=== PATIENT | female | born 1975 | race Caucasian/White ===

== ENCOUNTER 2023-04-25 09:54 | Day surgery (SDC) | payer BC ==
--- NOTE | 2023-04-25 08:30 | HP ---
DATE OF SURGERY: 04/25/2023 HISTORY OF PRESENT ILLNESS: The patient had last colonoscopy five years ago. No change in bowel movements. She had some blood in the underwear at times. No new pain. PAST MEDICAL HISTORY: Arthritis, anxiety, sleep apnea, history of ovarian cysts. PAST SURGICAL HISTORY: Cholecystectomy. Knee surgery. LEEP. MEDICATIONS: Citalopram, Tremfya, folic acid, simvastatin. ALLERGIES: CIPROFLOXACIN. FAMILY HISTORY: Hyperlipidemia. Diabetes. Negative for colon cancer. Mother had history of colon polyps. SOCIAL HISTORY: Former smoking. No alcohol abuse. REVIEW OF SYSTEMS: Fourteen systems reviewed. No chest pain or palpitations. Other systems negative or noncontributory as above and per preadmission questionnaire. PHYSICAL EXAMINATION: GENERAL: No acute distress. HEENT: Sclerae nonicteric. EOMI. Oral mucous membranes moist. NECK: No JVD. CHEST: Equal excursion, nonlabored breathing. CVS: Regular rate and rhythm. ABDOMEN: Soft. No peritoneal signs. EXTREMITIES: No edema. NEURO: Alert, oriented, moving extremities symmetrically. RECTAL: Deferred timed to endoscopy exam. PSYCH: Appropriate mood and affect. SKIN: Dry. IMPRESSION: Small amount of rectal bleeding. The patient is in need of colonoscopy. She has family history of polyps. Risks and benefits explained in detail including but not limited to bleeding or infection, risk of bowel injury or perforation, risk of missed or nondiagnosis or incomplete exam possibly requiring barium enema, other studies or procedures, general risk of anesthesia or sedation, risk of bowel prep but not limited to. Consent obtained. Will proceed with outpatient colonoscopy for rectal bleeding. The patient is to continue medication for anxiety. Will proceed for colonoscopy as an outpatient.
[2023-04-25 10:34] VITALS: RESP 16
[2023-04-25] MEDS ORDERED: Lactated Ringers 1,000 ML IV SCH (11:00)
[2023-04-25] MEDS ORDERED: Versed 2 MG/2 ML Injection ONE (11:39)
[2023-04-25] MEDS ORDERED: DIPRIVAN 200 MG/20 ML IV ONE ×2 (11:39→12:03)
[2023-04-25] MEDS ORDERED: Xylocaine-Mpf 2% 5 Ml Vial ONE (11:39)
[2023-04-25 13:09] VITALS: O2SAT 99
[2023-04-25 13:16] VITALS: BP 119/80; PULSE 61; TEMP 96.9
--- NOTE | 2023-04-25 14:36 | OP ---
SURGERY DATE/TIME: 04/25/2023 1146 PREOPERATIVE DIAGNOSIS: Need for screening colonoscopy. POSTOPERATIVE DIAGNOSES: 1) Moderately large sigmoid colon polyp. 2) Smaller polyps transverse colon, additional 2 sigmoid polyps. 3) Small rectal polyp. 4) Diverticulosis left colon. PROCEDURES: 1) Colonoscopy to cecum. 2) Hot snare polypectomy, moderately large sigmoid colon polyp with ink spot tattooing location. 3) Hot biopsy polypectomy small polyp transverse colon, additional sigmoid colon polyps x2 and rectal polyp x1. 4) ASA Class II. SURGEON: Dr. Zelalem Carrasco. ANESTHESIA: MAC. ESTIMATED BLOOD LOSS: Minimal. INDICATIONS: As noted above. Risks and benefits explained in detail but not limited to and consent obtained. DESCRIPTION OF PROCEDURE AND FINDINGS: The patient is taken to the endoscopy room. MAC anesthesia induced. After official time out and no disagreement with planned procedure, digital rectal exam did not reveal any rectal masses. Video colonoscope inserted and passed up through the tortuous sigmoid, descending, transverse and ascending colon around to the cecum. Appendiceal orifice and valve well visualized. Prep overall a little bit of liquidy stool throughout the colon just slightly limiting the exam for small lesions but overall good prep. The scope was carefully withdrawn over the next 8 or 9 minutes. She had some diverticulosis in left colon. There was a small polyp in the transverse colon removed with hot biopsy polypectomy. There were two additional small polyps in the sigmoid colon removed with hot biopsy polypectomy. There was a large approximately 1 cm or so polyp on a stalk pedunculated, this was removed hot snare polypectomy with brief bursts of cautery and appeared to be removed intact. Given the appearance of the polyp, the size and contour, it was felt it warranted ink spot tattooing in this location. Submucosa ink spot tattooed 1 cc in one location and 0.5 cc in another location. The base appeared to be viable. It was marked. She did have some diverticulosis in the left colon. The scope pulled back to the rectum. Small polyp was removed with hot biopsy polypectomy. Good hemostasis was noted. The scope is withdrawn. The patient tolerated the procedure well. Findings discussed with her family out in the waiting area.
== END 2023-04-25 13:24 | disposition home or self-care (01) ==
LOC: SDC 09:54
PROVIDERS: ATTEND Surgery
DX: Z12.11 Encounter for screening for malignant neoplasm of colon (principal); K62.1 Rectal polyp; K57.30 Diverticulosis of large intestine without perforation or abscess without bleeding; D12.5 Benign neoplasm of sigmoid colon
CPT/HCPCS: J2250; J2704

== ENCOUNTER 2023-04-26 16:25 | Emergency (ER) | payer BC ==
[2023-04-26 16:54] VITALS: RESP 20; TEMP 96.7
[2023-04-26] MEDS ORDERED: TORAdol 30 mg Injection ONE (17:55)
[2023-04-26] MEDS ORDERED: Sodium Chloride 0.9% 1000 ML 1,000 ML ONE (17:55)
[2023-04-26] MEDS: Sodium Chloride 0.9% 1000 ML 1,000 ML IV STA (17:56)
[2023-04-26] MEDS: TORAdol 30 mg Injection IV ONE (17:56)
[2023-04-26 18:14] LABS: Absolute Neutrophil Ct (ANC) 1.74 x10^3/uL (1.4-6.9); BASOPHIL % 0.8 % (0.0-0.4); Basophil (Absolute #) 0.03 x10^3/uL (0-0.4); Eosinophil % 6.4 % (0.00-5.0); Eosinophil (Absolute #) 0.24 x10^3/uL (0-0.5); Hematocrit 37.8 % (35-47); Hemoglobin 12.4 g/dL (12.0-16.0); IMMATURE GRAN # 0.01 x10^3u/L (0.00-0.03); IMMATURE GRAN % 0.3 % (0.00-0.4); Lymphocyte (Absolute #) 1.28 x10^3/uL (1.0-4.6); Lymphocytes % 34.2 % (24.0-44.0); Mean Cell Volume 90.2 fL (78-100); Mean Corpuscular Hemoglobin 29.6 pg (26-32); Mean Corpuscular Hgb Concent. 32.8 g/dL (32-36); Mean Platelet Volume 9.9 fL (7.5-11.0); Monocyte (Absolute #) 0.44 x10^3/uL (0.0-1.3); Monocytes % 11.8 % (0.0-12.0); Neutrophil % 46.5 % (36.0-66.0); Platelet Count 205 x10^3/uL (150-450); Red Blood Count 4.19 x10^6/uL (4.1-5.4); Red Cell Distribution Width 12.4 % (11.5-14.0); White Blood Count 3.7 x10^3/uL (4.0-10.5)
[2023-04-26 18:29] LABS: ALBUMIN 3.8 g/dL (3.5-5.0); ALKALINE PHOSPHATASE 72 U/L (38-126); ANION GAP 9.4 MEQ/L (5-15); BLOOD UREA NITROGEN 9 mg/dL (7-17); CHLORIDE 106 mmol/L (98-107); Calcium 8.5 mg/dL (8.4-10.2); Carbon Dioxide 27 mmol/L (22-30); Creatinine 1 0.59 mg/dL (0.52-1.04); EST GLOMERULAR FILTRATION RATE > 60.0 ML/MIN; Glucose 96 mg/dL (74-106); LIPASE 104 U/L (23-300); Potassium 3.6 mmol/L (3.5-5.1); SGOT/AST 34 U/L (14-36); SGPT/ALT 28 U/L (0-35); SODIUM 139 mmol/L (137-145); Total Protein 6.7 g/dL (6.3-8.2)
[2023-04-26 19:20] LABS: Appearance Clear (Clear); Bacteria None Seen /HPF (None Seen); Bilirubin Negative (Negative); Blood Negative (Negative); Epithelial Cells None Seen /HPF (None Seen); Glucose, Urine Negative (Negative); Hyaline Casts NONE SEEN /LPF (0-2); Ketones Negative (Negative); Leukocyte Esterase Negative (Negative); Nitrite Negative (Negative); Ph 7.5 (4.6-8.0); Protein,Urine Dip Negative (Negative); RBC 0-2 /HPF (0-5); Urobilinogen 0.2 mg/dL (0.2); WBC 0-2 /HPF (0-5)
[2023-04-26 19:23] LABS: ADD URINE CULTURE? NO (NO)
[2023-04-26] MEDS ORDERED: MORPHINE SULFATE 4 MG INJ ONE (20:30)
[2023-04-26] MEDS: MORPHINE SULFATE 4 MG INJ IV ONE (20:31)
--- NOTE | 2023-04-26 20:34 | ERPHSYRPT ---
- History of Present Illness Time Seen by Provider: 04/26/23 16:45 Historian: patient Exam Limitations: no limitations Patient Subjective Stated Complaint: pt states yesterday she had colonoscopy done yesterday. pt states that she had multiple polyps removed with being the size of a bar of soap Triage Nursing Assessment: pt ambulated into the er; pt is axo x4; c/o yahir lower abd pain; pt denies N/V/D; active bowel sounds in all quads; c/o yahir flank pain; no respiratory distress present; skin PDW; vitals wnl Physician History: Patient is a 47-year-old female presents to emergency department for evaluation of abdominal pain post colonoscopy and polyp resection. Patient called her surgeon's office who advised her to come here for a CAT scan to rule out perforation. Patient's pain is mostly in the left lower quadrant. No trauma. No fever. Patient states she did not receive a prescription for pain medication. No associated vomiting no diarrhea. No rash. No fever. Symptoms are moderate in intensity. Palpation reproduces pain. Patient's son at bedside. They voiced no other complaints or concerns at this time. Portions of this note were created with voice recognition technology. There may be grammatical, spelling, punctuation or sound alike errors Timing/Duration: today Activities at Onset: none Quality: aching Abdominal Pain Onset Location: LLQ Pain Radiation: no radiation Severity of Pain-Max: moderate Severity of Pain-Current: mild Modifying Factors: Improves With: palpation Associated Symptoms: denies symptoms Previous symptoms: no prior history Allergies/Adverse Reactions: ciprofloxacin [From Cipro] Allergy (Unknown, Verified 04/26/23 16:34) Home Medications: Citalopram Hydrobromide [Celexa] 1 tab PO DAILY 03/31/23 [History] Folic Acid 1 mg [Folate 1 mg] 1 mg PO DAILY 03/31/23 [History] Guselkumab [Tremfya] 1 syringe SQ UD 03/31/23 [History] Simvastatin 20Mg [Zocor 20Mg] 40 mg PO DAILY 03/31/23 [History] Leflunomide [Arava] 10 mg PO 10 04/26/23 [History] Hx Tetanus, Diphtheria Vaccination/Date Given: No Hx Influenza Vaccination/Date Given: Yes Hx Pneumococcal Vaccination/Date Given: No Travel Risk - International Travel Have you traveled outside of the country in past 3 weeks: No - Coronavirus Screening Are you exhibiting any of the following symptoms?: No Close contact with a COVID-19 positive Pt in past 14-21 Days: No - Vaccine Status Have you recieved a Covid-19 vaccination: Yes [employer]: Moderna - Vaccination Dates Date of 2cond Vaccination (if applicable): 2020 - Review of Systems Constitutional: No Symptoms, No Fever, No Chills Eyes: No Symptoms Ears, Nose, & Throat: No Symptoms Respiratory: No Symptoms, No Cough, No Dyspnea Cardiac: No Symptoms, No Chest Pain, No Edema, No Syncope Abdominal/Gastrointestinal: No Symptoms, No Abdominal Pain, No Nausea, No Vo miting, No Diarrhea Genitourinary Symptoms: No Symptoms, No Dysuria Musculoskeletal: No Symptoms, No Back Pain, No Neck Pain Skin: No Symptoms, No Rash Neurological: No Symptoms, No Dizziness, No Focal Weakness, No Sensory Changes Psychological: No Symptoms Endocrine: No Symptoms Hematologic/Lymphatic: No Symptoms Immunological/Allergic: No Symptoms All Other Systems: Reviewed and Negative - Past Medical History Pertinent Past Medical History: Yes Neurological History: No Pertinent History ENT History: No Pertinent History Cardiac History: No Pertinent History Respiratory History: No Pertinent History Endocrine Medical History: No Pertinent History Musculoskeletal History: Arthritis GI Medical History: Gallbladder Disease History: No Pertinent History Psycho-Social History: No Pertinent History Female Reproductive Disorders: No Pertinent History Other Medical History: psoriatic arthritis - Past Surgical History Past Surgical History: Yes Neuro Surgical History: No Pertinent History Cardiac: No Pertinent History Respiratory: No Pertinent History Gastrointestinal: Cholecystectomy Genitourinary: No Pertinent History Musculoskeletal: No Pertinent History Female Surgical History: No Pertinent History Other Surgical History: leep, cone, knee, Essure implant.; colonscopy - Social History Smoking Status: Former smoker Exposure to second hand smoke: No Drug Use: none Patient Lives Alone: No - Female History Hx Now: No - Nursing Vital Signs Nursing Vital Signs: Initial Vital Signs Temperature 96.7 F 04/26/23 16:38 Pulse Rate 77 04/26/23 16:38 Respiratory Rate 20 04/26/23 16:38 Blood Pressure 126/83 04/26/23 16:38 O2 Sat by Pulse Oximetry 95 04/26/23 16:38 Pain Scale Pain Intensity 5 - Physical Exam General Appearance: no apparent distress, alert Eye Exam: PERRL/EOMI, eyes nml inspection Ears, Nose, Throat Exam: normal ENT inspection, pharynx normal, moist mucous membranes Neck Exam: normal inspection, non-tender, supple, full range of motion Respiratory Exam: normal breath sounds, lungs clear, No respiratory distress Cardiovascular Exam: regular rate/rhythm, normal heart sounds Gastrointestinal/Abdomen Exam: soft, other (Left lower quadrant tenderness to palpation. No guarding), No tenderness, No mass Back Exam: normal inspection, normal range of motion, No CVA tenderness, No vertebral tenderness Extremity Exam: normal inspection, normal range of motion, pelvis stable Neurologic Exam: alert, oriented x 3, cooperative, normal mood/affect, nml cerebellar function, sensation nml, No motor deficits Skin Exam: normal color, warm, dry SpO2 Interpretation: normal SpO2: 97 O2 Delivery: Room Air - Course Nursing assessment & vital signs reviewed: Yes - CT Exams Abdomen/Pelvis CT Interpretation: Tele-radiologist Report (CT abdomen pelvis. No comps. Negative CT abdomen pelvis) Ordered Tests: Active Orders 24 hr Category Date Time Status IV Insertion STAT Care 04/26/23 17:53 Active ABDOMEN WITHOUT CONTRAST [CT] Stat Exams 04/26/23 16:56 Taken CBC W DIFF Stat Lab 04/26/23 18:05 Completed CMP Stat Lab 04/26/23 18:05 Completed LIPASE Stat Lab 04/26/23 18:05 Completed UA W/RFX UR CULTURE Stat Lab 04/26/23 19:08 Completed Medication Summary Discontinued Medications Generic Name Dose Route Start Last Admin Trade Name Ginger PRN Reason Stop Dose Admin Sodium Chloride 1,000 mls @ 999 mls/hr 04/26/23 17:53 04/26/23 19:00 Sodium Chloride 0.9% 1000 Ml IV 04/26/23 18:53 Infused .Q1H1M STA Infusion Sodium Chloride Confirm 04/26/23 17:55 Sodium Chloride 0.9% 1000 Ml Administered 04/26/23 17:56 Dose 1,000 mls @ ud .ROUTE .STK-MED ONE Ketorolac Tromethamine 30 mg 04/26/23 17:53 04/26/23 17:56 Ketorolac Tromethamine 30 Mg/Ml Inj IV 04/26/23 17:54 30 mg STAT ONE Administration Ketorolac Tromethamine Confirm 04/26/23 17:55 Ketorolac Tromethamine 30 Mg/Ml Inj Administered 04/26/23 17:56 Dose 30 mg .ROUTE .STK-MED ONE Morphine Sulfate 4 mg 04/26/23 20:26 04/26/23 20:31 Morphine Sulfate 4 Mg/Ml Injection IV 04/26/23 20:27 4 mg STAT ONE Administration Morphine Sulfate Confirm 04/26/23 20:30 Morphine Sulfate 4 Mg/Ml Injection Administered 04/26/23 20:31 Dose 4 mg .ROUTE .STK-MED ONE Lab/Rad Data: Laboratory Result Diagrams 04/26/23 18:05 04/26/23 18:05 Laboratory Results 04/26/23 04/26/23 04/26/23 Range/Units 19:08 18:05 18:05 WBC 3.7 L (4.0-10.5) x10^3/uL RBC 4.19 (4.1-5.4) x10^6/uL Hgb 12.4 (12.0-16.0) g/dL Hct 37.8 (35-47) % MCV 90.2 (78-100) fL MCH 29.6 (26-32) pg MCHC 32.8 (32-36) g/dL RDW 12.4 (11.5-14.0) % Plt Count 205 (150-450) x10^3/uL MPV 9.9 (7.5-11.0) fL Gran % 46.5 (36.0-66.0) % Immature Gran % (Auto) 0.3 (0.00-0.4) % Nucleat RBC Rel Count 0.0 (0.00-0.1) % Eos # (Auto) 0.24 (0-0.5) x10^3/uL Immature Gran # (Auto) 0.01 (0.00-0.03) x10^3u/L Absolute Lymphs (auto) 1.28 (1.0-4.6) x10^3/uL Absolute Monos (auto) 0.44 (0.0-1.3) x10^3/uL Absolute Nucleated RBC 0.00 (0.00-0.01) x10^3u/L Lymphocytes % 34.2 (24.0-44.0) % Monocytes % 11.8 (0.0-12.0) % Eosinophils % 6.4 H (0.00-5.0) % Basophils % 0.8 (0.0-0.4) % Absolute Granulocytes 1.74 (1.4-6.9) x10^3/uL Basophils # 0.03 (0-0.4) x10^3/uL Sodium 139 (137-145) mmol/L Potassium 3.6 (3.5-5.1) mmol/L Chloride 106 (98-107) mmol/L Carbon Dioxide 27 (22-30) mmol/L Anion Gap 9.4 (5-15) MEQ/L BUN 9 (7-17) mg/dL Creatinine 0.59 (0.52-1.04) mg/dL Estimated GFR > 60.0 ML/MIN Glucose 96 (74-106) mg/dL Calcium 8.5 (8.4-10.2) mg/dL Total Bilirubin 0.50 (0.2-1.3) mg/dL AST 34 (14-36) U/L ALT 28 (0-35) U/L Alkaline Phosphatase 72 (38-126) U/L Serum Total Protein 6.7 (6.3-8.2) g/dL Albumin 3.8 (3.5-5.0) g/dL Lipase 104 (23-300) U/L Urine Color Yellow (Yellow) Urine Appearance Clear (Clear) Urine pH 7.5 (4.6-8.0) Ur Specific [place] 1.010 (1.005-1.030) Urine Protein Negative (Negative) Urine Glucose (UA) Negative (Negative) mg/dL Urine Ketones Negative (Negative) Urine Blood Negative (Negative) Urine Nitrite Negative (Negative) Urine Bilirubin Negative (Negative) Urine Urobilinogen 0.2 (0.2) mg/dL Ur Leukocyte Esterase Negative (Negative) U Hyaline Cast (Auto) NONE SEEN (0-2) /LPF Urine Microscopic RBC 0-2 (0-5) /HPF Urine Microscopic WBC 0-2 (0-5) /HPF Ur Epithelial Cells None Seen (None Seen) /HPF Urine Bacteria None Seen (None Seen) /HPF Urine Culture Reflexed NO (NO) - Progress Progress: improved Progress Note: Spoke to our patient's surgeon at approximately 8 PM. He had reviewed the CAT scan and felt it was normal. He advised discharging patient home with oral antibiotics. CT report reveals negative CT abdomen pelvis per radiologist. Patient discharged home. A prescription for Augmentin and [facility] was forwarded to patient's pharmacy. Patient received morphine before discharge. Pain improved. Patient voices no other complaints or concerns at this time. Portions of this note were created with voice recognition technology. There may be grammatical, spelling, punctuation or sound alike errors Complexity of problems addressed is moderate acute complicated No critical care time Complex of data reviewed and analyzed is extensive. Test ordered. Test reviewed and analyzed. Clinical correlation made between findings and history and physical examination. Plan of care discussed with patient's surgeon who advised of the management/antibiotic regimen. Risk complication and a risk morbidity/mortality of patient management is high. Patient received IV morphine for pain control. [facility] forwarded to patient's pharmacy. Patient agrees to follow-up with primary care doctor/patient's surgeon within 48 hours for reevaluation. Vital stable. She voices no other complaints or concerns at this time. Portions of this note were created with voice recognition technology. There may be grammatical, spelling, punctuation or sound alike errors 04/26/23 21:00 Counseled pt/family regarding: lab results, diagnosis, need for follow-up, rad results - Departure Departure Disposition: Home Clinical Impression: Abdominal pain Condition: Stable Critical Care Time: No Referrals: AMANDA HERNANDEZ NP, RN [Primary Care Provider] - Follow up/PCP as directed Additional Instructions: Discharge/Care Plan ARISTEO GARDINER was seen on 04/26/23 in the Emergency Room. The patient was counseled regarding Diagnosis,Lab results, Imaging studies, need for follow up and when to return to the Emergency Room. Prescriptions given: Discharge Note I have spoken with the patient and/or caregivers. I have explained the patient's condition, diagnosis and treatment plan based on the information available to me at this time. I have answered the patient's and/or caregiver's questions and addressed any concerns. The patient and/or caregivers have as good understanding of the patient's diagnosis, condition and treatment plan as can be expected at this point. The vital signs have been stable. The patient's condition is stable and appropriate for discharge from the emergency department. The patient will pursue further outpatient evaluation with the primary care physician or other designated or consulting physician as outlined in the discharge instructions. The patient and/or caregivers are agreeable to this plan of care and follow-up instructions have been explained in detail. The patient and/or caregivers have received these instruction. The patient/and or caregivers are aware that any significant change in condition or worsening of symptoms should prompt an immediate return to this or the closest emergency department or call 911. Prescriptions: Hydrocodone/APAP 5/325 [[facility] 5/325 mg] 1 each PO Q6H PRN PRN 3 Days #10 tablet MDD 4 PRN Reason: Pain Amox Tr/Potass Clav. 875 mg [Augmentin 875-125 Tablet] 875 mg PO BID 7 Days #14 tablet
[2023-04-26 21:01] VITALS: BP 113/84; PULSE 59
[2023-04-26 21:06] VITALS: O2SAT 97
--- NOTE | 2023-04-27 08:52 | XRAY ---
Indication: Abdominal pain following colonoscopy. Multiple contiguous axial images obtained through the abdomen only without contrast. Comparison: None Lung bases demonstrates minimal dependent atelectasis. Heart not enlarged. Noncontrasted stomach and visualized bowel loops appear nonobstructed. Previous cholecystectomy. Visualized pelvis demonstrates bilateral Essure contraceptive wires. No free fluid/air. Remaining liver, pancreas, spleen, adrenal glands, kidneys, and visualized ureters are unremarkable for noncontrast exam. Minimal scattered aortic calcifications without AAA. Osseous structures intact. Impression: Minimal arteriosclerotic disease. Remaining CT abdomen without contrast exam is negative.
== END 2023-04-26 21:07 | disposition home or self-care (01) ==
LOC: ED 16:25
DX: R10.32 Left lower quadrant pain (principal); Z79.891 Long term (current) use of opiate analgesic; Z79.899 Other long term (current) drug therapy
CPT/HCPCS: 36000; 36415; 74150; 80053; 81001; 83690; 85025; 96360; 96374; 96375; 99284; J1885; J2270

== ENCOUNTER 2024-07-25 08:07 | Emergency (ER) | payer BC ==
[2024-07-25 08:31] VITALS: RESP 18; TEMP 97.7
--- NOTE | 2024-07-25 08:33 | ERPHSYRPT ---
- History of Present Illness Time Seen by Provider: 07/25/24 08:33 Source: patient, family Exam Limitations: no limitations Patient Subjective Stated Complaint: BLE pain following a fall at home this am. Patient slipped going down her stairs. C/O RLE pain including the foot and ankle. C/O LLE pain near her calf. NO other c/o pain at this time. Denies hitting her head. Triage Nursing Assessment: Patient brought back to ER in a W/C. She was able to transfer self from chair to bed without assistance. Bearing weight to LLE without difficulties. NO placing full weight to RLE. Bruising present to right morrison area, top of right foot, and right ankle. No bruising noted to LLE at this time. Physician History: This is a 48-year-old white female patient who was brought into the emergency department by private vehicle escorted by family member secondary to a fall that occurred prior to arrival. Patient slipped on stairs and has pain in her left lower leg, right lower leg, right ankle and right foot. She did not hit her head. She did not lose consciousness. She has no other areas of tenderness. Patient has a history of hyperlipidemia, rheumatoid arthritis, psoriatic arthritis, anxiety/depression. Occurred: just prior to arrival Reason for Fall: slipped Injuries/Pain Location: lower extremity (Includes left lower leg, right lower leg, right ankle and right foot) Loss of Consciousness: no loss of consciousness Quality: aching Severity of Pain-Max: mild Severity of Pain-Current: mild Modifying Factors: Improves With: movement Associated Symptoms (Fall): extremity injury, trouble walking Allergies/Adverse Reactions: ciprofloxacin [From Cipro] Allergy (Unknown, Verified 07/25/24 08:20) Home Medications: Citalopram Hydrobromide [Celexa] 1 tab PO DAILY 03/31/23 [History] Folic Acid 1 mg [Folate 1 mg] 1 mg PO DAILY 03/31/23 [History] Guselkumab [Tremfya] 1 syringe SQ UD 03/31/23 [History] Simvastatin 20Mg [Zocor 20Mg] 40 mg PO DAILY 03/31/23 [History] Leflunomide [Arava] 10 mg PO 10 04/26/23 [History] Hx Tetanus, Diphtheria Vaccination/Date Given: Yes Hx Influenza Vaccination/Date Given: Yes Hx Pneumococcal Vaccination/Date Given: No Immunizations Up to Date: Yes Travel Risk - International Travel Have you traveled outside of the country in past 3 weeks: No - Emerging Infectious Disease Are you exhibiting symptoms associated with any current EIDs: No - Review of Systems Constitutional: No Symptoms Eyes: No Symptoms Ears, Nose, & Throat: No Symptoms Respiratory: No Symptoms Cardiac: No Symptoms Abdominal/Gastrointestinal: No Symptoms Genitourinary Symptoms: No Symptoms Musculoskeletal: Fall, Injury, Joint Pain Skin: No Symptoms Neurological: No Symptoms Psychological: No Symptoms Endocrine: No Symptoms Hematologic/Lymphatic: No Symptoms Immunological/Allergic: No Symptoms All Other Systems: Reviewed and Negative - Past Medical History Pertinent Past Medical History: Yes Neurological History: Migraines ENT History: No Pertinent History Cardiac History: No Pertinent History Respiratory History: Pneumonia Endocrine Medical History: No Pertinent History Musculoskeletal History: Other GI Medical History: Gallbladder Disease History: No Pertinent History Psycho-Social History: No Pertinent History Female Reproductive Disorders: No Pertinent History Other Medical History: PSORIATIC ARHTRITIS - Past Surgical History Past Surgical History: Yes Neuro Surgical History: No Pertinent History Cardiac: No Pertinent History Respiratory: No Pertinent History Gastrointestinal: Cholecystectomy Genitourinary: No Pertinent History Musculoskeletal: No Pertinent History Female Surgical History: No Pertinent History Other Surgical History: leep, cone, knee, Essure implant.; colonscopy - Female History Hx Now: No - Social History Smoking Status: Former smoker Exposure to second hand smoke: No Drug Use: none Patient Lives Alone: No - Social Determinants of Health Will the patient participate in the screening: Yes Do you worry about a steady place to live?: No Do you have any problems with any of the following?: No known problems In the past 12 months,have you had to go without utilities?: No Transportation Issues: No Has anyone in your support network made you feel unsafe?: No Have you or anyone in your house had to go without enough: No - Nursing Vital Signs Nursing Vital Signs: Initial Vital Signs Temperature 97.7 F 07/25/24 08:20 Pulse Rate 75 07/25/24 08:20 Respiratory Rate 18 07/25/24 08:20 Blood Pressure 116/85 07/25/24 08:20 O2 Sat by Pulse Oximetry 98 07/25/24 08:20 Pain Scale Pain Intensity 10 - [place] Coma Score Best Eye Response (Jd): (4) open spontaneously Best Verbal Response (Jd): (5) oriented Best Motor Response ([place]): (6) obeys commands [place] Total: 15 - Physical Exam General Appearance: no apparent distress, alert, anxiety Head Injury: no evidence of injury Eye Exam: PERRL/EOMI, eyes nml inspection ENT Exam: airway nml Neck Exam: supple, trachea midline, full range of motion, normal alignment, normal inspection Respiratory/Chest Exam: No chest tenderness, No respiratory distress, No ecchymosis, No crepitus Gastrointestinal Exam: No tenderness Rectal Exam: not done Back Exam: normal inspection, normal range of motion, No CVA tenderness, No vertebral tenderness Extremity Exam: pelvis stable, evidence of injury, tenderness (With associated ecchymosis in the area of the left lower leg, right lower leg, right ankle and right foot), No deformities Neurologic Exam: alert, oriented x 3, cooperative, operator control room II-XII nml as tested, nml cerebellar function, sensation nml SpO2: 98 - Course Nursing assessment & vital signs reviewed: Yes Ordered Tests: Active Orders 24 hr Category Date Time Status ANKLE (3 VIEWS) Stat Exams 07/25/24 08:33 Completed FOOT (MINIMUM 3 VIEWS) Stat Exams 07/25/24 08:34 Completed LOWER LEG Stat Exams 07/25/24 08:34 Completed LOWER LEG Stat Exams 07/25/24 08:34 Completed - Progress Progress: unchanged, pain not gone completely, re-examined Progress Note: 07/25/24 09:59 Medical decision making and the assignment of low complexity to this patient's medical issue today is based on review of the patient's past medical history, review of the patient's medication list, reviewed patient drug allergy list, history present illness and physical findings on examination. Workup in this patient includes x-ray of the left lower leg, right lower leg, right ankle and right foot. Differential diagnosis includes but is not limited to acute fracture and/or dislocation of above painful sites. The radiologist interpreted the following x-rays and I am listing the radiologist impression: Right foot x-ray shows minimal first MTP bunion deformity. Otherwise no acute fracture or dislocation. Right ankle x-ray shows no acute fracture or dislocation. Right lower leg x-ray shows no acute fracture or dislocation. Left lower leg x-ray shows no acute fracture or dislocation. Counseled pt/family regarding: diagnosis, need for follow-up, rad results Medical Desision Making - Independent Historian Additional History obtained from: Family - Diagnostic Testing Diagnostic test were ordered, analyzed, and reviewed by me: Yes Radiological Interpretation: Reviewed by me, Teleradiologist Report - Risk of complications Minimal Risk: Minimal risk of morbidity - Departure Departure Disposition: Home Clinical Impression: Fall with no significant injury, Multiple contusions Condition: Stable Critical Care Time: No Referrals: MARILUZ COSBY [employer]LE[employer] CURATOR [Primary Care Provider] - Follow up/PCP as directed Instructions: Minor Contusion ED Additional Instructions: Ice pack to tender areas 3-4 times a day for the next 2 to 3 days. If there are no contraindications, use Tylenol and ibuprofen for pain control. For persis tent pain beyond 3 days, follow-up with your primary care provider for further evaluation and management.
--- NOTE | 2024-07-25 09:29 | XRAY ---
Indication: Pain following fall. Comparison: None 3 nonweightbearing views right foot demonstrates minimal 1st MTP bunion deformity. No other bony, articular, or soft tissue abnormalities.
--- NOTE | 2024-07-25 09:29 | XRAY ---
Indication: Pain following fall. Comparison: March 31, 2021 3 view right ankle again demonstrates mild lateral soft tissue swelling. No new/acute bony, articular, or soft tissue abnormalities.
--- NOTE | 2024-07-25 09:29 | XRAY ---
Indication: Pain following fall. Comparison: None 2 view left lower leg demonstrates a few tiny anterior soft tissue calcified granulomas. No other bony, articular, or soft tissue abnormalities.
--- NOTE | 2024-07-25 09:29 | XRAY ---
Indication: Pain following fall. Comparison: None 2 view right lower leg demonstrates tiny anterior soft tissue calcified granuloma. No other bony, articular, or soft tissue abnormalities.
[2024-07-25 09:36] VITALS: PULSE 59; O2SAT 98
[2024-07-25 10:10] VITALS: BP 106/75
== END 2024-07-25 10:13 | disposition home or self-care (01) ==
LOC: ED 08:07
DX: Z04.3 Encounter for examination and observation following other accident (principal); S80.12XA Contusion of left lower leg, initial encounter; S80.11XA Contusion of right lower leg, initial encounter; S90.01XA Contusion of right ankle, initial encounter; S90.31XA Contusion of right foot, initial encounter; W10.9XXA Fall (on) (from) unspecified stairs and steps, initial encounter; E78.5 Hyperlipidemia, unspecified; Z79.899 Other long term (current) drug therapy
CPT/HCPCS: 73590; 73610; 73630; 99283

== ENCOUNTER 2024-12-09 10:19 | Emergency (ER) | payer BC ==
--- NOTE | 2024-12-09 10:50 | ERPHSYRPT ---
- History of Present Illness Time Seen by Provider: 12/09/24 10:47 Patient Subjective Stated Complaint: pt here for cough, aches ,sore throat for 2 weeks, Triage Nursing Assessment: . Physician History: Patient is 49-year-old female with significant past medical history of psoriatic arthritis for which patient is on Rinvoq started having generalized bodyaches sore throat headache 2 weeks ago. Patient does not have any sick contacts at home. Due to worsening sore throat patient came to the emergency room. Patient denies any nausea vomiting fever chills or blood in the stool or urine. Timing/Duration: week(s) (Two weeks) Cough Quality/Degree: dry cough Possible Cause: no prior episodes Associated Symptoms: cough, headache, muscle aches, sore throat, No fever, No chills Allergies/Adverse Reactions: ciprofloxacin [From Cipro] Allergy (Unknown, Verified 12/09/24 10:35) Home Medications: Citalopram Hydrobromide [Celexa] 1 tab PO DAILY 03/31/23 [History] Folic Acid 1 mg [Folate 1 mg] 1 mg PO DAILY 03/31/23 [History] Guselkumab [Tremfya] 1 syringe SQ UD 03/31/23 [History] Simvastatin 20Mg [Zocor 20Mg] 40 mg PO DAILY 03/31/23 [History] Leflunomide [Arava] 10 mg PO 10 04/26/23 [History] Citalopram Hydrobromide [Celexa] 20 mg PO UD 09/27/24 [History] Estradiol [Estrace] 1 mg PO UD 09/27/24 [History] Folic Acid 1 mg [Folate 1 mg] 1 mg PO UD 09/27/24 [History] Leflunomide 10 mg PO UD 09/27/24 [History] Loratadine 10 mg [Claritin 10 mg] 10 mg PO UD 09/27/24 [History] Medroxyprogesterone Acetate [Provera] 8.5 mg PO UD 09/27/24 [History] Omeprazole Magnesium [Prilosec Otc] 20 mg PO UD 09/27/24 [History] Upadacitinib [Rinvoq] 15 mg PO UD 09/27/24 [History] Hx Tetanus, Diphtheria Vaccination/Date Given: No Hx Influenza Vaccination/Date Given: Yes Hx Pneumococcal Vaccination/Date Given: No Immunizations Up to Date: Yes Travel Risk - International Travel Have you traveled outside of the country in past 3 weeks: No - Emerging Infectious Disease Are you exhibiting symptoms associated with any current EIDs: Yes Symptoms: Cough: New Onset - Review of Systems Constitutional: Malaise, No Fever, No Chills Eyes: No Symptoms Ears, Nose, & Throat: Throat Pain Respiratory: No Cough, No Dyspnea Cardiac: No Chest Pain, No Edema, No Syncope Abdominal/Gastrointestinal: No Abdominal Pain, No Nausea, No Vomiting, No Diarrhea Genitourinary Symptoms: No Dysuria Musculoskeletal: No Back Pain, No Neck Pain, No Fall Skin: No Symptoms, No Rash Neurological: No Symptoms, No Dizziness, No Focal Weakness, No Sensory Changes Psychological: No Symptoms Endocrine: No Symptoms All Other Systems: Reviewed and Negative - Past Medical History Pertinent Past Medical History: Yes Neurological History: Migraines ENT History: No Pertinent History Cardiac History: No Pertinent History Respiratory History: Pneumonia Endocrine Medical History: No Pertinent History Musculoskeletal History: Other GI Medical History: Gallbladder Disease History: No Pertinent History Psycho-Social History: No Pertinent History Female Reproductive Disorders: No Pertinent History Other Medical History: PSORIATIC ARHTRITIS - Past Surgical History Past Surgical History: Yes Neuro Surgical History: No Pertinent History Cardiac: No Pertinent History Respiratory: No Pertinent History Gastrointestinal: Cholecystectomy Genitourinary: No Pertinent History Musculoskeletal: No Pertinent History Female Surgical History: No Pertinent History Other Surgical History: leep, cone, knee, Essure implant.; colonscopy - Female History Hx Last Menstrual Period: post Hx Now: No - Social History Smoking Status: Never smoker Exposure to second hand smoke: No Drug Use: none - Social Determinants of Health Will the patient participate in the screening: Yes Do you worry about a steady place to live?: No Do you have any problems with any of the following?: No known problems In the past 12 months,have you had to go without utilities?: No Transportation Issues: No Has anyone in your support network made you feel unsafe?: No Have you or anyone in your house had to go w/o enough food: No - Nursing Vital Signs Nursing Vital Signs: Initial Vital Signs Pulse Rate 80 12/09/24 10:34 Respiratory Rate 18 12/09/24 10:34 Blood Pressure 126/93 12/09/24 10:34 O2 Sat by Pulse Oximetry 99 12/09/24 10:34 Pain Scale Pain Intensity 5 - Physical Exam General Appearance: no apparent distress, alert Eye Exam: PERRL/EOMI, eyes nml inspection Ears, Nose, Throat Exam: normal ENT inspection, TMs normal, pharynx normal, moist mucous membranes, pharyngeal erythema Neck Exam: normal inspection, non-tender, supple, full range of motion, No Brudzinski, No Kernig's, No lymphadenopathy Respiratory Exam: normal breath sounds, lungs clear, No respiratory distress Cardiovascular Exam: regular rate/rhythm, normal heart sounds Gastrointestinal/Abdomen Exam: soft, No tenderness Back Exam: normal inspection, No CVA tenderness, No vertebral tenderness Extremity Exam: normal inspection, normal range of motion Neurologic Exam: alert, oriented x 3, cooperative, normal mood/affect, sensation nml, No motor deficits Skin Exam: normal color, warm, dry, No rash Lymphatic Exam: No adenopathy SpO2: 97 - Course Nursing assessment & vital signs reviewed: Yes - Radiology Exams Chest X-ray Interpretation: Interpreted by me, Reviewed by me, Negative Ordered Tests: Active Orders 24 hr Category Date Time Status CHEST 2 VIEWS (PA AND LAT) Stat Exams 12/09/24 11:11 Taken Lab/Rad Data: Laboratory Results 12/09/24 Range/Units 10:45 Influenza Type A Ag NEGATIVE (NEGATIVE) Influenza Type B Ag NEGATIVE (NEGATIVE) RSV (PCR) NEGATIVE (NEGATIVE) SARS-CoV-2 (PCR) NEGATIVE (NEGATIVE) Group A Strep Antibody NOT DETECTED (NEGATIVE) - Progress Progress: unchanged Air Movement: good Blood Culture(s) Obtained: No Antibiotics given: No Counseled pt/family regarding: lab results, diagnosis, need for follow-up, rad results Medical Desision Making - Independent Historian Additional History obtained from: Family - Diagnostic Testing Diagnostic test were ordered, analyzed, and reviewed by me: Yes Radiological Interpretation: Interpreted by me, Reviewed by me - Risk of complications Minimal Risk: Minimal risk of morbidity - Departure Departure Disposition: Home Clinical Impression: Post viral debility Pharyngitis Qualifiers: Pharyngitis/tonsillitis etiology: unspecified etiology Qualified Code(s): J02.9 - Acute pharyngitis, unspecified Condition: Stable Critical Care Time: No Referrals: MARILUZ COSBY NP [Primary Care Provider] - Follow up/PCP as directed Instructions: Sore throat in adults - ED discharge instructions Additional Instructions: Discharge/Care Plan ARISTEO GARDINER was seen on 12/09/24 in the Emergency Room. The patient was counseled regarding Diagnosis,Lab results, Imaging studies, need for follow up and when to return to the Emergency Room. Prescriptions given: Discharge Note I have spoken with the patient and/or caregivers. I have explained the patient's condition, diagnosis and treatment plan based on the information available to me at this time. I have answered the patient's and/or caregiver's questions and addressed any concerns. The patient and/or caregivers have as good understanding of the patient's diagnosis, condition and treatment plan as can be expected at this point. The vital signs have been stable. The patient's condition is stable and appropriate for discharge from the emergency department. The patient will pursue further outpatient evaluation with the primary care physician or other designated or consulting physician as outlined in the discharge instructions. The patient and/or caregivers are agreeable to this plan of care and follow-up instructions have been explained in detail. The patient and/or caregivers have received these instruction. The patient/and or caregivers are aware that any significant change in condition or worsening of symptoms should prompt an immediate return to this or the closest emergency department or call 911. ARISTEO GARDINER was seen on 12/09/24 n the Emergency Room. At that time you were treated for an emergent condition, during your visit Laboratory, Radiology and/or other procedures may have been ordered. It is very important that you follow-up with your Primary Care Physician MARILUZ COSBY NP within the next 24-48 hours to review your Emergency Room visit and the final results of testing that was ordered. Some test results such as Urine Cultures, Blood Cultures, and other cultures if ordered will not be finalized for 24-48 hours. If you do not have a Primary Care Provider please call the medical records [facility] at [phone] ext [phone] to obtain a copy of your results or you may sign into our patient portal to obtain these results by visiting us @ [email or web address] and completing the following steps: 1. Click on the Patient Portal link 2. Click the Patient Self Enrollment Link to complete the enrollment form and entering your 3. Once the enrollment form is completed you will receive an email with a temporary ID and password at the email address you provided. 4. Next choose a user name and password. Your user name must be at least 4 characters long and your password must be at least 4 characters long. 5. Choose a security question from the list and provide your answer to the question. If you already have signed into the Health Portal you may access your Health Care Information 18/04 by the following steps: 1. Login to our website @ [email or web address] 2. Enter your original user name and password. FAQS The [facility] Health Portal is an online tool that contains your Lab Results, Radiology Reports, Visit History, Discharge Instructions and Health Summary Lab and Radiology Results will not be available for 72 hours on the portal. The Portal is a secure site, passwords are encryted and URLs are re-written so they cannot be copied and pasted. You and authorized family members are the only ones who can access your Portal. Also there is a timeout feature that protects your information if you leave the Portal page open. If you have technical difficulty please use the Contact Us link on the page this will allow you to submit any questions you have regarding the Portal or you may contact the Medical Record Department at [phone] ext [phone]. Prescriptions: Methylprednisolone Packet [Medrol Dosepack] 4 mg PO UD #21 packet
[2024-12-09 11:18] LABS: Group A Strep NOT DETECTED (NEGATIVE)
[2024-12-09 11:29] LABS: INFLUENZA A NEGATIVE (NEGATIVE); INFLUENZA B NEGATIVE (NEGATIVE); RESPIRATORY SYNCTIAL VIRUS NEGATIVE (NEGATIVE); SARS-CoV-2 Xpert Express NEGATIVE (NEGATIVE)
[2024-12-09] MEDS ORDERED: solu-MEDROL ONE (11:56)
[2024-12-09] MEDS ORDERED: Sterile H2O 10 ml IJ ONE (11:56)
[2024-12-09] MEDS: solu-MEDROL 125 MG, Sterile H2O 10 ml 2 ML IM ONE (12:00)
[2024-12-09 12:18] VITALS: BP 138/92; PULSE 72; RESP 16; TEMP 97.8; O2SAT 96
--- NOTE | 2024-12-09 19:41 | XRAY ---
Indication: Cough. Short of breath. Comparison: March 02, 2022 PA/lateral chest again demonstrates normal heart and lungs. Bony thorax intact. No new/acute findings.
== END 2024-12-09 12:15 | disposition home or self-care (01) ==
LOC: ED 10:19
DX: R53.81 Other malaise (principal); J02.9 Acute pharyngitis, unspecified; M79.10 Myalgia, unspecified site; R51.9 Headache, unspecified; Z79.899 Other long term (current) drug therapy; Z79.52 Long term (current) use of systemic steroids
CPT/HCPCS: 0241U; 71046; 87651; 99285; 99283; J2919